=== PATIENT | male | born 1990 | race Caucasian/White ===

== ENCOUNTER 2018-07-04 13:18 | Emergency (ER) | payer SELFPAY ==
[~2018-07-04] VITALS: Ht 180.3 cm; Wt 100.0 kg
[~2018-07-04 13:18] MED LIST: BACTRIM DS1 TAB PO; CELEXA20 MG PO; DEPAKOTE500 MG PO; SEROQUEL100 MG PO
[2018-07-04] MEDS ORDERED: CEPHALEXIN500 M1 PO (13:36)
[2018-07-04] MEDS ORDERED: MUPIROCIN21 TOP (13:36)
[2018-07-04] MEDS ORDERED: VALACYCLOVIR HCL1 GM PO (13:36)
[2018-07-04 13:55] VITALS: BP 144/67
== END 2018-07-04 13:55 | disposition home or self-care (01) | DRG 866 ==
LOC: ED 13:18
DX: B02.8 Zoster with other complications (principal); L03.116 Cellulitis of left lower limb; F17.200 Nicotine dependence, unspecified, uncomplicated